=== PATIENT | female | born 1985 | race Two or more races ===

== ENCOUNTER 2023-02-25 18:23 | Emergency (ER) | payer MEDICAID ==
[~2023-02-25] VITALS: Ht 152.4 cm; Wt 56.7 kg
[2023-02-25 18:49] VITALS: BP 128/87
--- NOTE | 2023-02-25 21:30 | NUR ---
Jose from home who states she has had pain to the right breast area, right shoulder, right upper back and right upper arm for the last 2 days. Pain is 10 out of 10 worse with movement and touching the area. No acute respi distress at this time. will wait for md orders.
[2023-02-25] MEDS ORDERED: KETOROLAC TROMETHAMINE INJ 30 MG/ML VIAL IM ONE (22:00)
[2023-02-25] MEDS ORDERED: KETOROLAC TROMETHAMINE INJ 30 MG/ML VIAL ONE (22:27)
[2023-02-25] MEDS ORDERED: IBUP-1953 PO (22:56)
--- NOTE | 2023-02-25 23:45 | NUR ---
PT OK TO DISCHARGE PER DR HOUSTON. Patient discharged to home in stable condition. Written and verbal after care instructions given. Patient verbalizes understanding of instruction.Patient is awake and alert to self, day, and place. PT ambulatory with a steady gait
== END 2023-02-25 23:45 | disposition home or self-care (01) ==
LOC: ER 18:26
DX: R07.89 Other chest pain (principal)
CPT/HCPCS: 99285; 71045; 96372; 76642; J1885